=== PATIENT | female | born 1990 | race Caucasian/White ===

== ENCOUNTER 2017-02-16 09:42 | Outpatient (CLI) | payer OTHER ==
--- NOTE | 2017-02-16 11:15 | ULT ---
OBSTETRIC ULTRASOUND: INDICATION: anatomic survey. FINDINGS: There is a single intrauterine gestation in breech presentation. The placenta is anterior in locatio n without evidence of previa. The cervical length is 5.5 cm. HONEY is noted at 9.4 cm. heart r ate was 143 b.p.m. The head, heart, stomach, kidneys, cord insertion, bladder, lips and nose, and 3-vessel cord ap peared within normal limits. The estimated gestational age based on the biometrics is 21 weeks and 6 days with estimated due date of 06/23/17. This corresponds to the clinical age provided of 21 weeks and 4 days with estimate d due date of 06/25/17. weight is 454 gm +/- 67 gm (1 pound 0 ounces +/- 2 ounces). This is 58th percentile based on H adlock criteria. IMPRESSION: 1. Single live intrauterine gestation. 2. Size and dates as above. 3. survey appeared within normal limits. POS: EFRAIN
== END 2017-02-16 09:43 | disposition home or self-care (01) ==
LOC: ULT 09:42
PROVIDERS: ATTEND Family Medicine
DX: Z33.1 Pregnant state, incidental (principal)
CPT/HCPCS: 76805

== ENCOUNTER 2017-06-25 06:00 | Inpatient (IN) | payer OTHER ==
[2017-06-25 13:41] VITALS: BMI 26.1
[2017-06-25] MEDS ORDERED: Acetaminophen 500 MG TAB PO PRN (13:43)
[2017-06-25] MEDS ORDERED: Acetaminophen/Codeine 30-300mg Tablet PO PRN ×2 (13:43→20:32)
[2017-06-25] MEDS ORDERED: Promethazine HCl 25 MG/ML VIAL IM PRN (13:43)
[2017-06-25] MEDS ORDERED: NS w/ Oxytocin 10 units 500 ML IV SCH ×2 (13:43)
[2017-06-25] MEDS ORDERED: HYDROcodone/Acetaminophen 5/325 mg Tablet PO PRN ×2 (13:43→20:32)
[2017-06-25] MEDS ORDERED: Ondansetron HCl/PF 4 MG/2 ML Vial IVP PRN ×2 (13:43→20:32)
[2017-06-25] MEDS ORDERED: Lactated Ringer's 1,000 ML IV SCH (13:43)
[2017-06-25] MEDS ORDERED: Misoprostol 200 MCG TAB PR PRN (13:43)
[2017-06-25] MEDS ORDERED: Lidocaine 1% (PF) 30 ML VIAL SC PRN (13:43)
[2017-06-25] MEDS ORDERED: Ibuprofen 800 MG TAB PO PRN (13:43)
[2017-06-25 13:54] LABS: Hemoglobin 10.6 g/dL (12.0-16.0); Mean Corpuscular HGB CONC 35.7 g/dL (32.0-36.0); Mean Corpuscular Volume 84.1 fl (81.0-99.0); Mean Platelet Volume 10.3 fL (7.4-10.4); Platelet Count 188 thou/uL (130-400); RBC Distribution Width 13.5 % (11.5-14.5); Red Blood Cell (RBC) Count 3.54 mill/uL (4.20-5.40); White Blood Cell (WBC) Count 9.3 thou/uL (4.8-10.8)
[2017-06-25 14:23] LABS: HBSAg Index 0.18 S/CO (0-0.99); Hep B Surf Ag Non-Reactive S/CO (NonReactive); Syphilis Antibody Nonreactive (Nonreactive); Syphilis Antibody Index 0.03 S/CO (<1.00 Non-Reactive)
[2017-06-25] MEDS: NS / Oxytocin 40 units/1000ml 1,000 ML IV PRN ×2 (18:00→19:50)
[2017-06-25] MEDS ORDERED: Bisacodyl 10 MG SUPP PR PRN (20:32)
[2017-06-25] MEDS ORDERED: diphenhydrAMINE 25 MG CAP PO PRN (20:32)
[2017-06-25] MEDS ORDERED: NS / Oxytocin 40 units/1000ml 1,000 ML IV SCH (20:32)
[2017-06-25] MEDS ORDERED: Benzocaine/Menthol 20-0.5% 60 ML CAN TOP PRN (20:32)
[2017-06-25] MEDS ORDERED: Milk Of Magnesia 30 ML UDCUP PO PRN (20:32)
[2017-06-25] MEDS ORDERED: Preparation H Ointment 28 GM TUBE PR PRN (20:32)
[2017-06-25] MEDS ORDERED: Lanolin Ointment 7 GM TUBE TOP PRN (20:32)
[2017-06-25] MEDS: Ferrous Sulfate 325 MG TAB PO SCH (21:31)
[2017-06-25] MEDS: Docusate Calcium (SURFAK) 240 MG CAP PO SCH (21:33)
[2017-06-26] MEDS: Ibuprofen 800 MG TAB PO SCH ×5 (00:15→15:04)
[2017-06-26 06:25] LABS: Hemoglobin 8.4 g/dL (12.0-16.0); Mean Corpuscular HGB CONC 34.3 g/dL (32.0-36.0); Mean Corpuscular Hemoglobin 29.6 pg (27.0-31.0); Mean Corpuscular Volume 86.4 fl (81.0-99.0); Mean Platelet Volume 10.1 fL (7.4-10.4); Platelet Count 147 thou/uL (130-400); RBC Distribution Width 13.8 % (11.5-14.5); Red Blood Cell (RBC) Count 2.84 mill/uL (4.20-5.40); White Blood Cell (WBC) Count 11.5 thou/uL (4.8-10.8)
[2017-06-26] MEDS: Ferrous Sulfate 325 MG TAB PO SCH ×2 (08:34→17:15)
[2017-06-26] MEDS: Docusate Calcium (SURFAK) 240 MG CAP PO SCH (08:34)
[2017-06-26] MEDS ORDERED: Prenatal Vitamin 1 TAB PO SCH (09:00)
[2017-06-26 17:57] VITALS: BP 112/64; TEMP 97.8
== END 2017-06-26 19:03 | disposition home or self-care (01) | DRG 775 ==
LOC: L&D 12:38 → 3SW 20:29
PROVIDERS: ADMIT Family Medicine; ATTEND Family Medicine
PROC: 10E0XZZ Delivery of Products of Conception, External Approach (ICD-10-PCS; principal; 2017-06-25)
PROC: 0KQM0ZZ Repair Perineum Muscle, Open Approach (ICD-10-PCS; 2017-06-25)
PROC: 10907ZC Drainage of Amniotic Fluid, Therapeutic from Products of Conception, Via Natural or Artificial Opening (ICD-10-PCS; 2017-06-25)
DX: O70.1 Second degree perineal laceration during delivery (principal); Z37.0 Single live birth; Z3A.40 40 weeks gestation of pregnancy
CPT/HCPCS: 36415; 85027; 86780; 86850; 86900; 86901; 87340; J2001

== ENCOUNTER 2019-09-05 10:17 | Outpatient (CLI) | payer OTHER ==
[2019-09-06 12:10] LABS: SARS-CoV-2 MS2 Positive; SARS-CoV-2 N Gene Negative; SARS-CoV-2 S Gene Negative; SARS-CoV-2 by NAA Not Detected (NotDetected); SARS-CoV-2 orf1ab Negative
== END 2019-09-05 10:18 | disposition home or self-care (01) ==
LOC: LABSCS 10:17
PROVIDERS: ATTEND Student in an Organized Health Care Education/Training Program
DX: Z01.812 Encounter for preprocedural laboratory examination (principal); Z11.59 Encounter for screening for other viral diseases
CPT/HCPCS: 87635; U0003

== ENCOUNTER 2019-09-08 06:58 | Inpatient (IN) | payer OTHER, SELFPAY ==
[2019-09-08] MEDS ORDERED: Diphenoxylate HCl/Atropine Tablet PO PRN (07:30)
[2019-09-08] MEDS ORDERED: hydrALAZINE 20 MG/ML VIAL SLOW IVP PRN ×2 (07:30→13:51)
[2019-09-08] MEDS ORDERED: Butorphanol Tartrate 1 MG/ML VIAL SLOW IVP PRN (07:30)
[2019-09-08] MEDS ORDERED: Misoprostol 200 MCG TAB PR PRN (07:30)
[2019-09-08] MEDS ORDERED: Carboprost 250 MCG/ML AMP IM PRN (07:30)
[2019-09-08] MEDS ORDERED: Lactated Ringer's 1,000 ML IV SCH (07:30)
[2019-09-08] MEDS ORDERED: Acetaminophen 500 MG TAB PO PRN (07:30)
[2019-09-08] MEDS ORDERED: NS w/ Oxytocin 10 units 500 ML IV SCH (07:30)
[2019-09-08] MEDS ORDERED: NS / Oxytocin 40 units/1000ml 1,000 ML IV PRN (07:30)
[2019-09-08] MEDS ORDERED: Methylergonovine 0.2 MG/ML VIAL IM PRN (07:30)
[2019-09-08] MEDS ORDERED: Lidocaine 1% (PF) 30 ML VIAL SC PRN (07:30)
[2019-09-08] MEDS ORDERED: HYDROcodone/Acetaminophen 5/325 mg Tablet PO PRN ×3 (07:30→13:51)
[2019-09-08] MEDS ORDERED: Ibuprofen 800 MG TAB PO PRN (07:30)
[2019-09-08] MEDS ORDERED: Ondansetron PF 4 MG/2 ML Vial IVP PRN ×3 (07:30→13:51)
[2019-09-08] MEDS ORDERED: Promethazine HCl 25 MG/ML VIAL IM PRN ×3 (07:30→13:51)
[2019-09-08] MEDS ORDERED: NS w/ Oxytocin 10 units 500 ML ONE (07:31)
--- NOTE | 2019-09-08 08:01 | PDOC.LDHP ---
Labor and Delivery H&P Chief complaint: scheduled induction HPI: 29yo at 39w0d by LMP here for elective IOL. No complaints. Current gestational age (weeks): 39 Due date: 09/15/19 Dating criteria: last menstrual period Grav: 3 Para: 2 Current complications: none Abnormal US findings: No Past Medical History: denies Current medications: pre-pranav vitamins Previous surgical history: none Allergies/Adverse Reactions: Allergies Allergy/AdvReac Type Severity Reaction Status Date / Time No Known Drug Allergies Allergy Verified 09/08/19 07:38 Social history: none - Physical Exam Vital signs reviewed and normal: yes General: NAD Heart: RRR Lungs: CTAB Abdomen: gravid Extremeties: no edema FHT: category 1 Mccausland contractions every: 4min - Vaginal Exam cm dilated: 3 Effacement: 75% Station: -2 (arom clear scant) - OB Labs RH: positive Antibody Screen: negative HIV: negative RPR: negative HEPSAg: negative 1 hour GCT: negative GBS: negative Urine drug screen: negative Rubella: immune - Assessment L&D Assessment: elective induction at term - Plan Plan: admit to L&D, labor augmentation if indicated, informed consent obtained, anesthesia consult for pain management
[2019-09-08] MEDS ORDERED: Fentanyl 4 mcg/Bup 0.1% Cadd 100 ML ONE (08:32)
[2019-09-08 08:40] LABS: Hemoglobin 10.4 g/dL (12.0-16.0); Mean Corpuscular HGB CONC 34.3 g/dL (32.0-36.0); Mean Corpuscular Volume 84.5 fL (78.0-98.0); Platelet Count 175 thou/uL (130-400); RBC Distribution Width 13.4 % (11.5-14.5); Red Blood Cell (RBC) Count 3.59 mill/uL (4.20-5.40)
[2019-09-08 08:45] LABS: HBSAg Index 0.15 S/CO (0-0.99); Hep B Surf Ag Non-Reactive S/CO (NonReactive); Syphilis Antibody Nonreactive (Nonreactive); Syphilis Antibody Index 0.02 S/CO (<1.00 Non-Reactive)
[2019-09-08] MEDS ORDERED: Lactated Ringer's 500 ML IV PRN (09:37)
[2019-09-08] MEDS ORDERED: Naloxone HCl 0.4 mg/ml Vial IVP PRN ×2 (09:37)
[2019-09-08] MEDS ORDERED: EPHEDRINE 25 MG/5 ML SYRINGE SLOW IVP PRN (09:37)
[2019-09-08] MEDS ORDERED: diphenhydrAMINE 50 MG/ML VIAL IVP PRN (09:37)
[2019-09-08] MEDS ORDERED: Acetaminophen 325 MG TAB PO PRN (09:37)
[2019-09-08] MEDS ORDERED: Communication Order-Pharmacy FS SCH (09:45)
[2019-09-08] MEDS ORDERED: Fentanyl 4 mcg/Bupivacaine 0.1% Cassette 100 ML EPIDURAL SCH (09:45)
--- NOTE | 2019-09-08 12:08 | PDOC.OPDEL ---
OB Operative/Delivery Note Delivery Dr/Surgeon: Atilio Assist: n/a Pre-Delivery Diagnosis: elective induction Procedure/Post Delivery Dx: spontaneous vaginal delivery Weeks gestation: 39 Anesthesia: epidural - Findings A Sex: female - 1 min: 8 - 5 min: 9 - Additional Findings/Plan Placenta delivered: spontaneous Repaired Obstetrical Laceration: 1st degree Estimated blood loss: 240cc Post delivery plan: routine recovery
[2019-09-08 13:47] VITALS: BMI 27.4
[2019-09-08] MEDS ORDERED: Adacel (T-DAP) 0.5 ML SYRINGE IM ONE (13:51)
[2019-09-08] MEDS ORDERED: Bisacodyl 10 MG SUPP PR PRN (13:51)
[2019-09-08] MEDS ORDERED: NS / Oxytocin 40 units/1000ml 1,000 ML IV SCH (13:51)
[2019-09-08] MEDS ORDERED: Lanolin Ointment 7 GM TUBE TOP PRN (13:51)
[2019-09-08] MEDS ORDERED: Benzocaine-Menthol 82.5 ML CAN TOP PRN (13:51)
[2019-09-08] MEDS ORDERED: Preparation H Ointment 28 GM TUBE PR PRN (13:51)
[2019-09-08] MEDS ORDERED: Milk Of Magnesia 30 ML UDCUP PO PRN (13:51)
[2019-09-08] MEDS ORDERED: diphenhydrAMINE 25 MG CAP PO PRN (13:51)
[2019-09-08] MEDS: Ibuprofen 800 MG TAB PO SCH ×2 (14:18→21:38)
[2019-09-08] MEDS ORDERED: Sodium Chloride 0.9% 10 ML ONE (20:33)
[2019-09-08] MEDS: Docusate Calcium (SURFAK) 240 MG CAP PO SCH (21:38)
[2019-09-08] MEDS: Ferrous Sulfate 325 MG TAB PO SCH (21:43)
[2019-09-09] MEDS: Ibuprofen 800 MG TAB PO SCH ×2 (07:28→13:59)
--- NOTE | 2019-09-09 08:20 | PDOC.PP ---
Post Progress Note Post Day #: 1 PO intake tolerated: yes Flatus: yes Ambulation: yes Vital Signs (12 hours) Temp Pulse Resp BP Pulse Ox 09/09/19 08:08 97.7 F 66 20 114/71 98 09/09/19 04:40 97.8 F 56 L 16 116/65 98 09/09/19 00:50 97.4 F L 60 16 116/57 L 97 Weight Weight 170 lb - Physical Examination General: NAD Respiratory: non-labored breathing Abdominal: no distention, appropriately TTP Skin: no rash Neurological: no gross focal deficits Psychiatric: normal affect Result Diagrams: 09/08/19 08:34 Additional Labs: Post Labs Blood Type A POSITIVE 09/08/19 07:51 Hep Bs Antigen Non-Reactive S/CO (NonReactive) 09/08/19 07:51 - Assessment/Plan PPD1 s/p TSVD VSSAF Doing well, lochia < menses Rh pos RImm DC home FU 6w
[2019-09-09] MEDS ORDERED: Prenatal Vitamin 1 TAB PO SCH (09:00)
[2019-09-09] MEDS: Docusate Calcium (SURFAK) 240 MG CAP PO SCH (09:26)
[2019-09-09] MEDS: Ferrous Sulfate 325 MG TAB PO SCH (09:27)
[2019-09-09 11:48] VITALS: BP 128/69; TEMP 98.3
== END 2019-09-09 14:35 | disposition home or self-care (01) | DRG 807 ==
LOC: L&D 06:58 → 3SE 14:13
PROVIDERS: ADMIT Student in an Organized Health Care Education/Training Program; ATTEND Student in an Organized Health Care Education/Training Program
PROC: 10E0XZZ Delivery of Products of Conception, External Approach (ICD-10-PCS; principal; 2019-09-08)
PROC: 0HQ9XZZ Repair Perineum Skin, External Approach (ICD-10-PCS; 2019-09-08)
PROC: 10907ZC Drainage of Amniotic Fluid, Therapeutic from Products of Conception, Via Natural or Artificial Opening (ICD-10-PCS; 2019-09-08)
PROC: 3E033VJ Introduction of Other Hormone into Peripheral Vein, Percutaneous Approach (ICD-10-PCS; 2019-09-08)
DX: O70.0 First degree perineal laceration during delivery (principal); Z37.0 Single live birth; Z3A.39 39 weeks gestation of pregnancy
CPT/HCPCS: 36415; 51702; 85027; 86780; 86850; 86900; 86901; 87340; J2590